=== PATIENT | male | born 1960 | race Caucasian/White ===

== ENCOUNTER 2022-02-05 08:05 | Day surgery (SDC) | payer MEDICARE, OTHER ==
[2022-02-03 12:51] VITALS: BMI 30.1
[~2022-02-05 08:05] MED LIST: ceFAZolin 1 GM in SODIUM CHLORIDE 0.9% IRRIG BTL 250 ML IRRIGATION PRN
[2022-02-05] MEDS ORDERED: SODIUM CHLORIDE 0.9% 1,000 ML IV ONE (08:20)
[2022-02-05 08:38] LABS: Glucose,Whole Blood 205 mg/dL (75-99)
[2022-02-05] MEDS ORDERED: INSULIN ASPART (NovoLOG) 100 UNIT/ML VIAL SQ ONE (09:00)
[2022-02-05] MEDS ORDERED: fentaNYL (PF) 50 MCG/ML 2 ML AMP ONE (10:00)
[2022-02-05] MEDS ORDERED: KETAMINE 10 MG/ML 20 ML VIAL ONE (10:00)
[2022-02-05] MEDS ORDERED: MIDAZOLAM 2 MG/2 ML VIAL ONE (10:00)
[2022-02-05] MEDS ORDERED: METOPROLOL TARTRATE 5 MG/5 ML VIAL IVP ONE (10:00)
[2022-02-05] MEDS: IOPAMIDOL-370 50ML BTL INJ ONE ×2 (10:14→11:20)
[2022-02-05] MEDS ORDERED: LIDOCAINE 1% INJ 10MG/ML (30 ML VIAL-PF) SQ ONE (10:56)
[2022-02-05] MEDS: LIDOCAINE 1% INJ 10MG/ML (30 ML VIAL-PF) SQ ONE ×2 (10:57→11:11)
--- NOTE | 2022-02-05 13:33 | P.PCN ---
Preoperative Diagnosis: Long procedure duration on account of #1 mapping that will LV veins. The posterior lateral vein and its tributaries were mapped in detail. The issues were diaphragmatic stimulation and height thresholds Mental placed distally the diaphragm would be stimulated and when the lead was moved proximally the thresholds were unacceptably high Finally was able to find a position where electrodes 1 and 2 had very good thresholds and voided diaphragmatic stimulation In addition to RV coil also had excellent thresholds without diaphragmatic stimulation This is a very stable lead position The RV lead positioning was also challenging RV septum was mapped and then finally a very stable good position was finally achieved after multiple attempts with the mond stylette The atrial lead position was also challenging and multiple areas of the right atrium including the roof, lateral wall and the septal and lateral Lasix of the right atrial appendage mapped Finally it was positioned in the somewhat lateral aspect of the right atrial appendage and screwed in Initial thresholds were high sensing was adequate and greater than 2.0 By the end of the procedure thresholds had begun to improve Lead was in stable position Significant cardiomegaly and cardiac rotation was noted
--- NOTE | 2022-02-05 13:38 | P.EPPROC ---
- EP Procedure Note Electrophysiology Procedure Note: Diagnosis Severe nonischemic cardio myopathy Severe LV dysfunction Left bundle branch block on 12-lead EKG Procedure LV/ biventricular ICD implantation for primary prevention of sudden cardiac and heart failure management Details Patient was brought to the EP lab in a fasting state. Written informed consent was obtained prior to the procedure. Conscious sedation provided by anesthesia team IV antibiotics administered. Local anesthesia administered. A 4 cm incision made in the pectoral area. Subfascial pocket made. Venous access obtained Venous sheaths placed. Leads placed in the right heart Atrial lead position the right atrial appendage. Right atrial appendage, [facility] representative Pacing threshold 1.75 V at 0.5 ms, P waves 2.4 mV pacing impedance 710 ohms RV lead position in the RV apex. Mid RV septum position, [facility] medical record lead Threshold 0.5 V at 0.5 ms, P waves 5.1 mV and pacing impedance 510 ohms LV lead positioned in the LV vein. Positioned along the very distal aspect of the posterior lateral vein heading superiorly to was the lateral wall/posterior lateral wall Finally we were able to avoid diaphragmatic stimulation pacing from poles 1 and 2 as well as from poles 1 to RV coil Thresholds were excellent, 0.75 V at 0.5 ms pacing impedance 510 ohms High-voltage impedance 78 ohms Biventricular pacemaker device connected to the leads and placed in the subfascial pocket [facility] medical receptionist biller, [place] heart failure by the ICD Patient tolerance the procedure well without acute complications DDD at 50 LV offset -55 ms AV synch MADIT RIT
[2022-02-05] MEDS ORDERED: ACETAMINOPHEN IV (For NPO) 1,000 MG in EMPTY BAG 1 BAG IVPB ONE (13:40)
[2022-02-05] MEDS: ACETAMINOPHEN TAB 325 MG TAB PO PRN (15:30)
--- NOTE | 2022-02-05 15:33 | XR ---
EXAMINATION TYPE: XR chest 1V portable DATE OF EXAM: 02/05/2022 HISTORY: Shortness of breath. COMPARISON: None. TECHNIQUE: Single view of the chest is submitted. FINDINGS: Demonstrated are scattered senescent parenchymal change. There is no evidence for focal infiltrate. The heart is stable. Hilar and mediastinal structures are within normal limits. Degenerative changes are seen of the dorsal spine. IMPRESSION: 1. Chronic changes without evidence for acute pulmonary disease.
[2022-02-05] MEDS: SODIUM CHLORIDE 0.9% 1,000 ML IV SCH (19:04)
[2022-02-05] MEDS: carvediloL 12.5 MG TAB PO SCH (19:05)
[2022-02-06] MEDS: SODIUM CHLORIDE 0.9% 1,000 ML IV SCH (02:16)
[2022-02-06] MEDS: ACETAMINOPHEN TAB 325 MG TAB PO PRN (03:12)
[2022-02-06 05:43] VITALS: RESP 18; TEMP 98.2
[2022-02-06] MEDS ORDERED: PANTOPRAZOLE 40 MG TABLET PO SCH (07:30)
[2022-02-06 08:07] VITALS: PULSE 74
[2022-02-06] MEDS: carvediloL 12.5 MG TAB PO SCH (08:54)
[2022-02-06] MEDS ORDERED: SPIRONOLACTONE 25 MG TAB PO SCH (09:00)
[2022-02-06] MEDS ORDERED: PRAVASTATIN SODIUM 20 MG TAB PO SCH (09:00)
[2022-02-06] MEDS ORDERED: SACUBITRIL/VALSARTAN 24 MG-26 MG TABLET PO SCH (09:00)
[2022-02-06] MEDS ORDERED: ESCITALOPRAM 20 MG TAB PO SCH (09:00)
[2022-02-06] MEDS ORDERED: FUROSEMIDE 20 MG TAB PO SCH (09:00)
--- NOTE | 2022-02-06 10:39 | P.DS ---
Providers Attending physician: Ricky Odell Primary care physician: Braeden Main [facility] Course: Patient is doing well. No chest discomfort dizziness lightheadedness no palpitations On examination his blood pressure is elevated 188/82 mmHg Breath sounds are clear No rhonchi no crackles Heart sounds and some sore normal The device site is healed well Chest x-ray is within normal limits LV lead is in great position All leads are in stable position Antibiotics completed Device checked awaited The most recent labs in January are as follows Sodium 133, potassium 4.9, BUN 11 and creatinine 1.0 Hemoglobin A1c 9.7% Triglycerides 438 HDL 28 Impression Severe nonischemic cardio myopathy Left bundle branch block pattern Hypertension, uncontrolled Diabetes type 2 with hemoglobin A1c of 9.7% Hypertriglyceridemia Suggest Increase ENTRESTO, 2 tabs bid Continue all other medications unchanged for now Diabetes management per PCP Follow-up with cardiology within 1 week Follow-up BMP Increase carvedilol to 12.5 mg twice daily DFT testing in 3 months Plan - Discharge Summary Discharge Rx Participant: Yes New Discharge Prescriptions: New Sacubitril/Valsartan [Entresto 24 mg-26 mg Tablet] 2 each PO BID #90 tablet Continue Escitalopram [Lexapro] 20 mg PO DAILY Spironolactone 12.5 mg PO DAILY Carvedilol [Coreg] 6.25 mg PO BID Pravastatin Sodium [Pravachol] 10 mg PO DAILY Furosemide [Lasix] 20 mg PO DAILY metFORMIN HCL ER [Glucophage XR] 500 mg PO BID Omeprazole 20 mg PO DAILY Aspirin [Adult Low Dose Aspirin EC] 81 mg PO DAILY Discontinued Sacubitril/Valsartan [Entresto 24 mg-26 mg Tablet] 1 each PO DAILY Discharge Medication List Aspirin [Adult Low Dose Aspirin EC] 81 mg PO DAILY 02/03/22 [History] Carvedilol [Coreg] 6.25 mg PO BID 02/03/22 [History] Escitalopram [Lexapro] 20 mg PO DAILY 02/03/22 [History] Furosemide [Lasix] 20 mg PO DAILY 02/03/22 [History] Omeprazole 20 mg PO DAILY 02/03/22 [History] Pravastatin Sodium [Pravachol] 10 mg PO DAILY 02/03/22 [History] Spironolactone 12.5 mg PO DAILY 02/03/22 [History] metFORMIN HCL ER [Glucophage XR] 500 mg PO BID 02/03/22 [History] Sacubitril/Valsartan [Entresto 24 mg-26 mg Tablet] 2 each PO BID #90 tablet 02/06/22 [Rx] Follow up Appointment(s)/Referral(s): Ricky Odell MD [STAFF PHYSICIAN] - 2 Weeks (Follow-up with Rama Alonso in 2 weeks for blood pressure management Increase ENTRESTO to 2 tablets twice daily for now) Activity/Diet/Wound Care/Special Instructions: PATIENT EDUCATION MATERIAL Instructions following a heart rhythm device implant. 1. Keep dressing DRY for 5 DAYS. You may cover the area with Saran or Cling Wrap, prior to a shower. 2. The dressing will be removed in the Device Clinic at [facility]. Absorbable sutures were used to close the wound. 3. Avoid raising the left arm above the shoulder level. 4 week restriction 4. Avoid arm movements, like backscratching, rubbing the head, or pulling on a cord. 4 weeks restriction 5. Gentle range of motion movements of the shoulder, closest to the incision should be performed to avoid a frozen shoulder. (Pendulum exercises of the shoulder) 6. The opposite arm may be used freely. 7. Avoid driving for 7 days. 8. Avoid activities such as golfing, swimming, weed whacking, lifting more than 10 pounds weight, bowling, gymnastics and weight training/lifting. (6 weeks restriction) 9. Activities such as wood chopping with an axe, pull-ups in the gymnasium, power lifting, arc-welding, being close to home induction cooktops will always be a problem. 10. Arm sling is only a reminder not to raise the arm above the head. You do not need to keep the arm completely immobilized. Your free to move the arm and use it and for normal activities. In case of any problems, please call [facility], Elaine Jean Baptiste, @ [phone], Attention: Device Clinic Device clinic follow-up in 5 days Follow-up with primary director of sales marketing in 2 week Discharge Disposition: HOME SELF-CARE
[2022-02-06 10:56] VITALS: BP 162/89
[2022-02-07] MEDS ORDERED: metFORMIN 500 MG TAB PO SCH (07:30)
== END 2022-02-06 13:27 | disposition home or self-care (01) ==
LOC: CATHEP 08:05 → 6NMEDSUR 13:18 → CATHEP 02-06 13:27
PROVIDERS: ATTEND Internal Medicine Clinical Cardiac Electrophysiology
DX: I50.9 Heart failure, unspecified (principal); E11.9 Type 2 diabetes mellitus without complications; E78.1 Pure hyperglyceridemia; I11.9 Hypertensive heart disease without heart failure; I44.7 Left bundle-branch block, unspecified; Z79.82 Long term (current) use of aspirin; Z79.84 Long term (current) use of oral hypoglycemic drugs; Z79.899 Other long term (current) drug therapy
CPT/HCPCS: 33225; 33249; 71045; C1769 ×5; C1882; C1892 ×2; C1730; C1887; C1898; C1900; C1777; J2250; J0690; J2001; J3010; Q9967

== ENCOUNTER 2022-02-13 10:53 | Day surgery (SDC) | payer MEDICARE ==
[2022-02-13] MEDS ORDERED: SODIUM CHLORIDE 0.9% 1,000 ML IV SCH (11:08)
[2022-02-13 11:19] LABS: Glucose,Whole Blood 165 mg/dL (75-99)
[2022-02-13] MEDS ORDERED: SODIUM CHLORIDE 0.9% 500 ML 500 ML IV ONE (11:24)
[2022-02-13 11:27] VITALS: BP 159/77; PULSE 61; RESP 16; TEMP 98.9
--- NOTE | 2022-02-13 12:52 | P.PCN ---
Preoperative Diagnosis: Diagnosis Elevated atrial lead thresholds, non-capture at high output Patient has a biventricular device RV and LV leads a functioning normally Is about 2 weeks out from the procedure The pocket is healed well Procedure Cinefluoroscopy of the leads was performed Atrial lead is in the right atrial appendage There is certainly been a loss of heel as compared to the post implant images I had deliberately given him extra heel for the lead to settle into the recess above the SVC Plan Observe for 6 weeks Recheck atrial lead thresholds in 6 weeks If after 2-3 months his atrial lead thresholds are still unacceptable only then would I performed atrial lead revision
== END 2022-02-13 12:38 | disposition home or self-care (01) ==
LOC: CATHEP 10:53
PROVIDERS: ATTEND Internal Medicine Clinical Cardiac Electrophysiology
DX: T85.111A Breakdown (mechanical) of implanted electronic neurostimulator of peripheral nerve electrode (lead), initial encounter (principal); Z20.822 Contact with and (suspected) exposure to COVID-19
CPT/HCPCS: 76000; 87635

== ENCOUNTER 2022-04-21 11:04 | Day surgery (SDC) | payer MEDICARE ==
[2022-04-20 09:00] VITALS: BMI 30.1
[~2022-04-21 11:04] MED LIST changes: +SODIUM CHLORIDE 0.9% 1,000 ML IV SCH
[2022-04-21 11:20] VITALS: RESP 18
[2022-04-21 11:25] LABS: Glucose,Whole Blood 177 mg/dL (70-110)
[2022-04-21] MEDS ORDERED: PROPOFOL 10 MG/ML 20 ML VIAL IV ONE (12:28)
[2022-04-21] MEDS ORDERED: fentaNYL (PF) 50 MCG/ML 2 ML AMP ONE (12:28)
[2022-04-21] MEDS ORDERED: KETAMINE 10 MG/ML 20 ML VIAL ONE (12:28)
[2022-04-21] MEDS ORDERED: MIDAZOLAM 2 MG/2 ML VIAL ONE (12:28)
[2022-04-21] MEDS ORDERED: LIDOCAINE 1% INJ 10MG/ML (30 ML VIAL-PF) SQ ONE (13:20)
[2022-04-21] MEDS ORDERED: VANCOMYCIN 1,500 MG in SODIUM CHLORIDE 0.9% 250 ML IVPB STA (13:41)
--- NOTE | 2022-04-21 14:30 | P.EPPROC ---
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 Written informed consent was obtained prior to the procedure. IV antibiotics administered An incision made directly over the previous surgical site Biventricular ICD generator, [facility] medical explanted Atrial lead disconnected Stylet placed in the atrial lead and agreed that he'll given to the lead The lead was securely implanted in the right atrial appendage musculature Thresholds rechecked Threshold of 4 V at 1 ms intraoperatively with very good sensing and impedance The lead was unscrewed Subclavian vein access obtained via this lead Sheath placed A passive atrial lead implanted in the right atrial appendage instead Excellent position, stable Atrial pacing threshold 0.5 V at 0.5 ms, P waves greater than 5-6 mV, current of injury noted, pacing impedance 600 ohms RV pacing threshold at the end of the procedure 0.5 V at 0.5 ms R waves 5.2 mV and pacing impedance. 500 ohms LV pacing threshold 0.75 V at 0.5 ms pacing impedance of 500 ohms high-voltage impedance 7 day for ohms Cine fluoroscopy revealed stable RV and LV lead position at the end of the procedure The device was reconnected Wound was closed in 3 layers and dressed per protocol IV vancomycin used Tyrx pouch placed
[2022-04-21] MEDS ORDERED: VANCOMYCIN 1,000 MG VIAL IVPB ONE (14:31)
[2022-04-21] MEDS ORDERED: ACETAMINOPHEN TAB 325 MG TAB PO PRN (14:52)
--- NOTE | 2022-04-21 15:17 | XR ---
EXAMINATION TYPE: XR chest 1V portable DATE OF EXAM: 04/21/2022 3:10 PM COMPARISON: Chest radiographs from 02/05/2022. TECHNIQUE: XR chest 1V portable Frontal view of the chest. CLINICAL INDICATION:Male, 61 years old with history of Lead placement check; FINDINGS: Lungs/Pleura: There is no evidence of pleural effusion, focal consolidation, or pneumothorax. Scatte red senescent parenchymal changes. Pulmonary vascularity: Unremarkable. Heart/mediastinum: Cardiomediastinal silhouette is unremarkable. Three lead cardiac conduction devic e overlying the left hemithorax with lead tips projecting over the right ventricle, right atrium and coronary sinus. Musculoskeletal: No acute osseous pathology. IMPRESSION: No acute cardiopulmonary disease/process.
[2022-04-21 16:57] VITALS: TEMP 97.3
[2022-04-21] MEDS: LACTATED RINGERS 1,000 ML IV SCH ×2 (17:39→17:40)
[2022-04-21 18:25] VITALS: BP 178/81; PULSE 67
== END 2022-04-21 18:50 | disposition home or self-care (01) ==
LOC: CATHEP 11:04 → 6NMEDSUR 14:17 → CATHEP 18:50
PROVIDERS: ATTEND Internal Medicine Clinical Cardiac Electrophysiology
DX: T82.110A Breakdown (mechanical) of cardiac electrode, initial encounter (principal); I11.0 Hypertensive heart disease with heart failure; I50.22 Chronic systolic (congestive) heart failure; I44.7 Left bundle-branch block, unspecified; I25.5 Ischemic cardiomyopathy; E78.5 Hyperlipidemia, unspecified; E11.9 Type 2 diabetes mellitus without complications; I42.8 Other cardiomyopathies; K21.9 Gastro-esophageal reflux disease without esophagitis; M16.0 Bilateral primary osteoarthritis of hip; Z20.822 Contact with and (suspected) exposure to COVID-19; Z79.84 Long term (current) use of oral hypoglycemic drugs; Z79.899 Other long term (current) drug therapy; Z79.82 Long term (current) use of aspirin; Z98.890 Other specified postprocedural states; Z82.49 Family history of ischemic heart disease and other diseases of the circulatory system
CPT/HCPCS: 33216; 33235; 87635; 71045; C1769 ×2; C1892; C1898; J2250; J3370; J0690; J2001; J3010; J2704

== ENCOUNTER → 2024-05-08 | Outpatient (CLI) | payer MEDICARE ==
--- NOTE | 2024-05-30 15:18 | US ---
Site ID [facility] Patient Harley Carr E ID [id number] Age/Gender: 63Y, M Order # N/A Procedure US RENALS AND BLADDER Date 05/08/2024 2:31:00 PM EXAMINATION TYPE: US renals and bladder DATE OF EXAM: 05/27/2024 COMPARISON: NONE CLINICAL INDICATION: Male, 63 year old with history of right flank pain, stones. EXAM MEASUREMENTS: Right Kidney: 12.5 x 5.4 x 5.3 cm Left Kidney: cm Post Void Residual Volume: mL Right Kidney: Mid anechoic lesion equals 3.8 x 3.0 x 2.8 cm Left Kidney: 2 anechoic lesions seen with largest measured at lateral inferior measuring 1.9 x 1.9 x 1.3 cm. Bladder: wnl Bilateral Jets seen: Yes There is no evidence for hydronephrosis at this point in time. Cortical medullary differentiation is maintained bilaterally. No nephrolithiasis is seen. Mid right kidney simple thin-walled 3.8 cm cyst. Additional thin wall anechoic left renal cysts with largest measuring up to 1.9 cm. The urinary bladd er is anechoic. Bilateral ureteral jets are seen. Visualized portions of the liver is hyperechoic co mpared to the kidney. IMPRESSION: 1. No hydronephrosis or nephrolithiasis. 2. Bilateral simple renal cysts.
== END | disposition home or self-care (01) ==
LOC: RADUSWWP 05-05 14:25
PROVIDERS: ATTEND Internal Medicine Clinical Cardiac Electrophysiology
DX: I10 Essential (primary) hypertension
CPT/HCPCS: 76770

== ENCOUNTER → 2024-09-11 | Outpatient (CLI) | payer MEDICARE ==
[2024-09-11 14:57] LABS: Basophils # (A) 0.07 X 10*3/uL (0.00-0.10); Basophils % (A) 0.9 %; Eosinophils # (A) 0.24 X 10*3/uL (0.04-0.35); Eosinophils % (A) 3.1 %; HCT 43.8 % (39.6-50.0); Lymphocytes # (A) 1.76 X 10*3/uL (0.90-5.00); MCH 29.4 pg (27.0-32.0); MCHC 34.2 g/dL (32.0-37.0); MCV 85.9 FL (80.0-97.0); Mean Platelet Volume 11.6 FL (9.5-12.2); Monocytes # (A) 0.67 X 10*3/uL (0.20-1.00); Monocytes % (A) 8.8 %; NRBC Per 100 WBC 0 X 10*3/uL (0.00-0.01); Neutrophils # (A) 4.89 X 10*3/uL (1.80-7.70); Neutrophils % (A) 63.9 %; Platelet Count 334 X 10*3/uL (140-440); RDW 11.9 % (11.5-14.5); WBC 7.65 X 10*3/uL (4.50-10.00)
[2024-09-11 15:23] LABS: ALT 27 U/L (10-49); AST 23 U/L (14-35); Albumin 4.4 g/dL (3.8-4.9); Albumin/Globulin Ratio 1.57 Ratio (1.60-3.17); Alkaline Phosphatase 67 U/L (41-126); Blood Urea Nitrogen 14.9 mg/dL (9.0-27.0); Calcium 9.8 mg/dL (8.7-10.3); Carbon Dioxide 23.9 mmol/L (21.6-31.8); Chloride 98 mmol/L (96-109); Globulin 2.8 g/dL (1.6-3.3); Glucose 262 mg/dL (70-110); Magnesium 1.5 mg/dL (1.5-2.4); Potassium 4.6 mmol/L (3.5-5.5); Sodium 132 mmol/L (135-145); Total Bilirubin 0.9 mg/dL (0.3-1.2); Total Protein 7.2 g/dL (6.2-8.2)
== END | disposition home or self-care (01) ==
LOC: LABWHC1 08:26
PROVIDERS: ATTEND Internal Medicine Clinical Cardiac Electrophysiology
DX: I50.22 Chronic systolic (congestive) heart failure (principal); I42.8 Other cardiomyopathies; I25.10 Atherosclerotic heart disease of native coronary artery without angina pectoris; I44.7 Left bundle-branch block, unspecified
CPT/HCPCS: 36415; 80053; 80061; 83036; 83721; 83735; 84443; 85025